=== PATIENT | female | born 1945 | race Caucasian/White ===

== ENCOUNTER → 2017-11-04 | Outpatient (CLI) | payer BC, MEDICARE ==
[~2017-11-04] MED LIST: CALC-322 PO; CHOL100034 PO; CYAN250014 PO; ESTR42.53 VG; FOLI-74 PO; ROPI1TAB11 PO
== END | disposition home or self-care (01) ==
LOC: RAH 09:57
PROVIDERS: ATTEND Internal Medicine
DX: Z12.31 Encounter for screening mammogram for malignant neoplasm of breast (principal)
CPT/HCPCS: 77067

== ENCOUNTER 2023-07-08 03:34 | Emergency (ER) | payer MEDICARE, OTHER ==
[~2023-07-08] VITALS: Ht 170.2 cm; Wt 65.8 kg
[~2023-07-08 03:34] MED LIST changes: -ROPI1TAB11 PO; +ROPI1TAB46 PO
[2023-07-08] MEDS ORDERED: CYCLOBENZAPRINE HCL 10 MG TABLET PO ONE (04:00)
[2023-07-08] MEDS ORDERED: SOLU-MEDROL 125MG VIAL IVP ONE (04:00)
[2023-07-08] MEDS ORDERED: KETOROLAC 30MG VIAL (30MG/ML) IM ONE (04:00)
[2023-07-08] MEDS ORDERED: IBUP-1493 PO (04:47)
[2023-07-08] MEDS ORDERED: METH-662 PO (04:47)
[2023-07-08 04:57] VITALS: BP 145/70; PULSE 56; RESP 17; O2SAT 96
== END 2023-07-08 05:28 | disposition home or self-care (01) ==
LOC: EDH 03:34
DX: S33.5XXA Sprain of ligaments of lumbar spine, initial encounter (principal); I10 Essential (primary) hypertension; Z88.1 Allergy status to other antibiotic agents; X58.XXXA Exposure to other specified factors, initial encounter; Y93.89 Activity, other specified; Y92.89 Other specified places as the place of occurrence of the external cause; Y99.8 Other external cause status
CPT/HCPCS: 99284; 96374; 96372; J2930; J1885